=== PATIENT | male | born 1955 | race Hispanic/Latino ===

== ENCOUNTER 2020-06-17 10:58 | Emergency (ER) | payer BC, MEDICARE ==
--- NOTE | 2020-06-17 12:22 | Emergency Department Report ---
ED Chest Pain HPI - General Chief Complaint: Chest Pain Stated Complaint: CHEST PAIN Time Seen by Provider: 06/17/20 12:11 Source: patient Mode of arrival: Ambulatory Limitations: No Limitations - History of Present Illness Initial Comments: This is a 65-year-old male presents to the emergency department via EMS with complaint of some midsternal chest tightness, shortness of breath, nausea without vomiting. The patient says that he was eating oatmeal this morning and the symptoms started about 30 minutes later. The patient does have a known history of allergies to both codeine and MSG. He does not know if there was any MSG within the oatmeal but says that this feels similar to when he had an allergic reaction to MSG. He drove himself to a fire station because "I felt that there was something wrong", and he was brought into the emergency department for further evaluation. The patient has a history of being born with Klinefelter's. He also has a history of some type of tachyarrhythmia as he has been evaluated by 2 different cardiologists and they have recommended a defibrillator to be placed, which is scheduled in the next month or 2. His retail pos specialist is Dr. Meier at [facility]. The patient did not take anything, nor receive anything, for his symptoms prior to presentation. He now still has some mild chest tightness but denies any shortness of breath. He denies any fever, lower extremity swelling, back pain. He does take one half tab of metoprolol per day for his tachycardia. Otherwise he denies any history of hypertension. He denies any history of coronary artery disease, CVA, PE/DVT. He denies any tobacco or illicit drug use. - Related Data Allergies Allergy/AdvReac Type Severity Reaction Status Date / Time codeine AdvReac Unknown Verified 06/17/20 14:11 monosodium glutamate AdvReac Shortness Verified 06/17/20 14:11 of Breath Heart Score - HEART Score History: Slightly suspicious EKG: Non-specific Age: 45-65 Risk factors: 1-2 risk factors Troponin: < normal limit HEART Score: 3 - Critical Actions Critical Actions: 0-3 pts:0.9-1.7%risk of adverse cardiac event.Candidate for discharge ED Review of Systems ROS: Stated complaint: CHEST PAIN Other details as noted in HPI Comment: All other systems reviewed and negative Constitutional: denies: chills, fever Eyes: denies: eye pain, vision change ENT: denies: ear pain, throat pain Respiratory: shortness of breath. denies: cough Cardiovascular: chest pain. denies: edema Gastrointestinal: nausea. denies: abdominal pain, vomiting Genitourinary: denies: dysuria, discharge Musculoskeletal: denies: back pain, arthralgia Skin: denies: rash, lesions Neurological: denies: headache, weakness ED Past Medical Hx - Past Medical History Previous Medical History?: Yes Hx Hypertension: Yes (no meds) Additional medical history: Bladder tumor, Klinefelter syndrome, hx hyperlipidemia no meds - Surgical History Past Surgical History?: Yes Additional Surgical History: Back surgery (83), neck surgery (89), rotator cuff surgery, bilateral mastectomy. - Social History Smoking Status: Never Smoker Substance Use Type: None ED Physical Exam - General Limitations: No Limitations - Other Other exam information: GENERAL: The patient is well-developed well-nourished. HENT: Normocephalic. Atraumatic. Patient has moist mucous membranes. EYES: Extraocular motions are intact. NECK: Supple. Trachea is midline. CHEST/LUNGS: Clear to auscultation. There is no respiratory distress noted. HEART/CARDIOVASCULAR: Regular. There is severe tachycardia. There is no murmur. ABDOMEN: Abdomen is soft, nontender. Patient has normal bowel sounds. SKIN: Skin is warm and dry. NEURO: The patient is awake, alert, and oriented. The patient is cooperative. The patient has no focal neurologic deficits. Normal speech. MUSCULOSKELETAL: There is no tenderness or deformity. There is no limitation range of motion. ED Course Vital Signs 06/17/20 06/17/20 06/17/20 12:03 12:50 13:22 Temperature 98.0 F Pulse Rate 159 H 159 H 146 H Respiratory 16 Rate Blood Pressure 136/79 O2 Sat by Pulse 97 Oximetry 06/17/20 06/17/20 06/17/20 13:23 13:36 14:19 Temperature Pulse Rate 144 H 151 H Respiratory 32 H 30 H Rate Blood Pressure 113/65 121/82 132/78 O2 Sat by Pulse 97 96 97 Oximetry 06/17/20 06/17/20 06/17/20 14:30 15:00 15:30 Temperature Pulse Rate 152 H 116 H Respiratory 21 Rate Blood Pressure 132/78 132/78 116/65 O2 Sat by Pulse 97 96 95 Oximetry 06/17/20 06/17/20 06/17/20 16:00 16:30 17:00 Temperature Pulse Rate 156 H 157 H 160 H Respiratory 21 22 18 Rate Blood Pressure 101/56 116/65 101/64 O2 Sat by Pulse 95 96 96 Oximetry 06/17/20 17:49 Temperature 98.0 F Pulse Rate 160 H Respiratory 18 Rate Blood Pressure O2 Sat by Pulse 96 Oximetry - Reevaluation(s) Reevaluation #1: 06/17/20 16:39 I have spoken to the patient, as well as his niece, multiple times regarding the patient's ED course, condition, treatment plan, and most recently regarding the patient's need of admission to the hospital. The patient, and his niece, previously stated that they want the patient transferred to [facility]. We have made multiple attempts to try and get in touch with the patient's cardiology group without success. The patient asked for me to discuss the patient's results and reason for admission with his sister. She was brought back to his bedside. I explained that the patient will need admission for his atrial flutter with RVR and the need for a Cardizem drip and possibly anticoagulation, as well as cardiology consultation. The patient's sister, as well as the patient, are adamant that he needs to go to [facility]. I explained that the patient is not stable for discharge at this time with his moderate to severe tachycardia, complaints of chest pain and dyspnea. On top of that, even if they go to [facility], they will have to go through the emergency department. It is possible the patient might be seen expediently, but it is also possible that they have an extended wait. With his symptoms, as well as this sustained tachycardia, I explained that the patient could have worsening chest pain, worsening shortness of breath, could develop an NH, stroke, have a syncopal episode and hit his head, or could even . The patient is awake, oriented, AAO x3, and has a normal decision-making capacity. The patient conferred with his sister, as well as his niece, and despite understanding the risks has still decided to leave AGAINST MEDICAL ADVICE. The patient does understand that he can return to this emergency department at any time, for any reason, and we will be happy to evaluate him. Reevaluation #3: 06/17/20 18:37 Lab Results 06/17/20 06/17/20 06/17/20 Range/Units 12:37 12:37 12:37 WBC 7.4 (4.5-11.0) K/mm3 RBC 5.78 H (3.65-5.03) M/mm3 Hgb 18.1 H (11.8-15.2) gm/dl Hct 53.2 H (35.5-45.6) % MCV 92 (84-94) fl MCH 31 (28-32) pg MCHC 34 (32-34) % RDW 15.8 H (13.2-15.2) % Plt Count 119 L (140-440) K/mm3 Lymph % (Auto) 17.4 (13.4-35.0) % [place] % (Auto) 5.8 (0.0-7.3) % Eos % (Auto) 0.9 (0.0-4.3) % Baso % (Auto) 0.6 (0.0-1.8) % Lymph # (Auto) 1.3 (1.2-5.4) K/mm3 [place] # (Auto) 0.4 (0.0-0.8) K/mm3 Eos # (Auto) 0.1 (0.0-0.4) K/mm3 Baso # (Auto) 0.0 (0.0-0.1) K/mm3 Seg Neutrophils % 75.3 H (40.0-70.0) % Seg Neutrophils # 5.6 (1.8-7.7) K/mm3 PT 15.8 H (12.2-14.9) Sec. INR 1.28 H (0.87-1.13) D-Dimer (0-234) ng/mlDDU Sodium 136 L (137-145) mmol/L Potassium 4.1 (3.6-5.0) mmol/L Chloride 103.6 (98-107) mmol/L Carbon Dioxide 25 (22-30) mmol/L Anion Gap 12 mmol/L BUN 14 (9-20) mg/dL Creatinine 0.9 (0.8-1.3) mg/dL Estimated GFR > 60 ml/min BUN/Creatinine Ratio 16 % Glucose 121 H (75-100) mg/dL Calcium 9.6 (8.4-10.2) mg/dL Total Bilirubin 0.60 (0.1-1.2) mg/dL AST 28 (5-40) units/L ALT 37 (7-56) units/L Alkaline Phosphatase 84 (35-129) units/L Troponin T < 0.010 (0.00-0.029) ng/mL Total Protein 6.9 (6.3-8.2) g/dL Albumin 3.8 L (3.9-5) g/dL Albumin/Globulin Ratio 1.2 % TSH (0.270-4.200) mlU/mL 06/17/20 06/17/20 06/17/20 Range/Units 12:37 12:37 15:39 WBC (4.5-11.0) K/mm3 RBC (3.65-5.03) M/mm3 Hgb (11.8-15.2) gm/dl Hct (35.5-45.6) % MCV (84-94) fl MCH (28-32) pg MCHC (32-34) % RDW (13.2-15.2) % Plt Count (140-440) K/mm3 Lymph % (Auto) (13.4-35.0) % [place] % (Auto) (0.0-7.3) % Eos % (Auto) (0.0-4.3) % Baso % (Auto) (0.0-1.8) % Lymph # (Auto) (1.2-5.4) K/mm3 [place] # (Auto) (0.0-0.8) K/mm3 Eos # (Auto) (0.0-0.4) K/mm3 Baso # (Auto) (0.0-0.1) K/mm3 Seg Neutrophils % (40.0-70.0) % Seg Neutrophils # (1.8-7.7) K/mm3 PT (12.2-14.9) Sec. INR (0.87-1.13) D-Dimer 637.39 H (0-234) ng/mlDDU Sodium (137-145) mmol/L Potassium (3.6-5.0) mmol/L Chloride (98-107) mmol/L Carbon Dioxide (22-30) mmol/L Anion Gap mmol/L BUN (9-20) mg/dL Creatinine (0.8-1.3) mg/dL Estimated GFR ml/min BUN/Creatinine Ratio % Glucose (75-100) mg/dL Calcium (8.4-10.2) mg/dL Total Bilirubin (0.1-1.2) mg/dL AST (5-40) units/L ALT (7-56) units/L Alkaline Phosphatase (35-129) units/L Troponin T < 0.010 (0.00-0.029) ng/mL Total Protein (6.3-8.2) g/dL Albumin (3.9-5) g/dL Albumin/Globulin Ratio % TSH 1.210 (0.270-4.200) mlU/mL LANDEN score - Landen Score Age > 65: (0) No Aspirin use within the Past 7 Days: (0) No 3 or more CAD Risk Factors: (0) No 2 or more Angina events in past 24 hrs: (1) Yes Known CAD with more than 50% Stenosis: (0) No Elevated Cardiac Markers: (0) No ST Deviation Greater than 0.5mm: (1) Yes LANDEN Score: 2 ED Medical Decision Making - Lab Data Result diagrams: 06/17/20 12:37 06/17/20 12:37 - EKG Data -: EKG Interpreted by Me - EKG Data Interpretation: other (Wide-complex tachycardia at 160 bpm, left axis deviation, prolonged QTC) 06/17/20 16:23 Repeat EKG at 1515, interpreted by me, shows atrial flutter with a 3-1 AV block, left axis deviation, nonspecific IVCD, LVH - Radiology Data Radiology results: report reviewed, image reviewed interpreted by me: Chest x-ray does not show any acute process. There are no pleural effusions, obvious pneumonia and there is no pneumothorax. No significant cardiomegaly. CTA CHEST WITH IV CONTRAST INDICATION / CLINICAL INFORMATION: MAIN. TECHNIQUE: Axial CT images were obtained through the chest after injection of 100 cc Omnipaque 350 milligrams percent IV contrast. 3 plane MIP and/or 3D reconstructions were produced. All CT scans at this loc ation are performed using CT dose reduction for ALARA by means of automated exposure control. COMPARISON: None available. FINDINGS: PULMONARY ARTERIES: No pulmonary emboli. THORACIC AORTA: No significant abnormality. HEART: No significant abnormality. CORONARY ARTERIES: No significant calcification. PLEURA: No pleural effusion. No pneumothorax. LYMPH NODES: No significant adenopathy. LUNGS: No acute air space or interstitial disease. ADDITIONAL FINDINGS: None. UPPER ABDOMEN: No acute findings. SKELETAL STRUCTURES: No significant osseous abnormality. IMPRESSION: 1. No CT evidence for pulmonary embolism. 2. No acute findings. - Medical Decision Making This patient presents to the emergency department with a complaint of chest pain and shortness of breath after eating his oatmeal this morning. Patient felt that maybe it was a reaction to MSG within his food. However, the patient presents with severe tachycardia with a heart rate of about 160. First EKG showed a wide complex tachyarrhythmia. There were T wave inversions to the lateral leads concerning for some ischemic changes, but no ST elevation myocardial infarction. Patient had another EKG done after receiving a dose of labetalol and the heart rate had come down to about 140. This time it showed an irregular sinus tachycardia. Later on, after the patient received a dose of IV calcium channel mable, heart rate came down to about 110 and it showed atrial flutter with a 3-1 AV block. Patient's labs were mostly unremarkable including CBC, metabolic panel, negative troponins x2, but the patient did have elevated D-dimer level. For this reason he had a CT angiography of the chest completed that did not show any pulmonary embolism, dissection, or any other acute processes. The initial or first dose of labetalol brought the heart rate down transiently and ultimately improved the heart rate from 160 bpm down to about 150 bpm. The second dose of labetalol did not appear to affect his heart rate. When the patient was later given a dose of Cardizem, the heart rate went down to about 100 and we were able to see the EKG findings of the atrial flutter with 3-1 AV block. However, the heart rate went back up into the 150s. It was at this time that it was my plan to place the patient on a Cardizem drip. As per the reevaluation section, I had been speaking with the patient throughout some of his ED course regarding the need for admission to the hospital. The patient and his niece had mentioned there desire to be transferred to [facility]. I attempted to get in touch with the [facility] [place] and also try to directly get in touch with Dr. Meier, without any success. When I explained that I was not having success with getting in touch with the cardiology group or making any headway on transfer to [facility], the patient and his sister decided they wanted to leave AGAINST MEDICAL ADVICE. I had a long conversation with both the patient and his sister regarding the risks of leaving AMA at this time. They have been conferenced with the rest of their family via cell phone, and still came to the decision that they were going to leave AMA. Since the patient is awake, oriented and has a normal decision- making capacity, he was allowed to sign out AMA. They understand that they should stop driving immediately, call 911, with any worsening of his symptoms or signs of any acute distress. They also understand that they can return to this emergency department at any time for reevaluation, despite leaving AMA at this time. Critical Care Time: Yes Critical care time in (mins) excluding proc time.: 35 Critical care attestation.: If time is entered above; I have spent that time in minutes in the direct care of this critically ill patient, excluding procedure time. Critical care time was spent on this patient in doing his initial evaluation, multiple reevaluations, ordering and interpretation of labs and imaging, multiple IV antihypertensive and chronotropic medications for rate control of the atrial flutter, multiple discussions with the patient and his family. Critical Care Time: 35 minutes ED Disposition Clinical Impression: Atrial flutter with rapid ventricular response Chest pain Qualifiers: Chest pain type: unspecified Qualified Code(s): R07.9 - Chest pain, unspecified Dyspnea Qualifiers: Dyspnea type: shortness of breath Qualified Code(s): R06.02 - Shortness of breath Disposition: DC-07 LEFT AGAINST MED ADVICE Is pt being admited?: No Instructions: Chest Pain (ED) Additional Instructions: Please return to the emergency department immediately if you change your mind about further evaluation, treatment, and admission. Forms: AMA Form Time of Disposition: 16:36
--- NOTE | 2020-06-17 12:45 | XRay Report ---
CHEST 1 VIEW 06/17/2020 11:38 AM INDICATION / CLINICAL INFORMATION: Chest pain. COMPARISON: None available. FINDINGS: SUPPORT DEVICES: None. HEART / MEDIASTINUM: No significant abnormality. LUNGS / PLEURA: No significant pulmonary or pleural abnormality. No pneumothorax. ADDITIONAL FINDINGS: No significant additional findings. IMPRESSION: 1. No acute abnormality of the chest. Signer Name: Delta Dominguez MD Signed: 06/17/2020 12:40 PM Workstation Name: [id number]
[2020-06-17] MEDS: SODIUM CHLORIDE 0.9% 1000 ML 1,000 ML IV ONE ×2 (12:50→15:07)
[2020-06-17 13:01] LABS: Basophils % (Auto) 0.6 % (0.0-1.8); Eosinophils # (Auto) 0.1 K/mm3 (0.0-0.4); Eosinophils % (Auto) 0.9 % (0.0-4.3); Hematocrit 53.2 % (35.5-45.6); Hemoglobin 18.1 gm/dl (11.8-15.2); Lymphocytes # (Auto) 1.3 K/mm3 (1.2-5.4); Lymphocytes % (Auto) 17.4 % (13.4-35.0); Mean Corpuscular HGB Conc 34 % (32-34); Mean Corpuscular Volume 92 fl (84-94); Monocytes # (Auto) 0.4 K/mm3 (0.0-0.8); Monocytes % (Auto) 5.8 % (0.0-7.3); Platelet Count 119 K/mm3 (140-440); Red Blood Count 5.78 M/mm3 (3.65-5.03); Red Cell Distribution Width 15.8 % (13.2-15.2)
[2020-06-17 13:12] LABS: INR 1.28 (0.87-1.13)
[2020-06-17 13:17] LABS: Alanine Aminotransferase 37 units/L (7-56); Albumin 3.8 g/dL (3.9-5); BUN/Creatinine Ratio 16; Blood Urea Nitrogen 14 mg/dL (9-20); Calcium 9.6 mg/dL (8.4-10.2); Hemolysis Index 6
[2020-06-17] MEDS ORDERED: dilTIAZem 25 MG/5 ML INJ IV ONE (13:37)
[2020-06-17] MEDS ORDERED: MORPHINE 4 MG/1 ML INJ IV ONE (13:37)
[2020-06-17] MEDS ORDERED: diphenhydrAMINE 50 MG/ML VIAL IV ONE (13:37)
[2020-06-17] MEDS ORDERED: MORPHINE 2 MG/1 ML INJ ONE (13:54)
[2020-06-17] MEDS ORDERED: SODIUM CHLORIDE 0.9% 1000 ML 1,000 ML IV ONE (15:05)
--- NOTE | 2020-06-17 15:08 | Cat Scan Report ---
CTA CHEST WITH IV CONTRAST INDICATION / CLINICAL INFORMATION: MAIN. TECHNIQUE: Axial CT images were obtained through the chest after injection of 100 cc Omnipaque 350 milligrams pe rcent IV contrast. 3 plane MIP and/or 3D reconstructions were produced. All CT scans at this location are performed using CT dose reduction for ALARA by means of automated exposure control. COMPARISON: None available. FINDINGS: PULMONARY ARTERIES: No pulmonary emboli. THORACIC AORTA: No significant abnormality. HEART: No significant abnormality. CORONARY ARTERIES: No significant calcification. PLEURA: No pleural effusion. No pneumothorax. LYMPH NODES: No significant adenopathy. LUNGS: No acute air space or interstitial disease. ADDITIONAL FINDINGS: None. UPPER ABDOMEN: No acute findings. SKELETAL STRUCTURES: No significant osseous abnormality. IMPRESSION: 1. No CT evidence for pulmonary embolism. 2. No acute findings. Signer Name: Kehinde Alves MD Signed: 06/17/2020 3:03 PM Workstation Name: [id number]
[2020-06-17] MEDS ORDERED: dilTIAZem/D5W 100 MG/100 ML BAG IV SCH (17:00)
[2020-06-17 17:49] VITALS: BP 101/64
== END 2020-06-17 17:50 | disposition left against medical advice (07) ==
LOC: ED 10:58
DX: I48.92 Unspecified atrial flutter (principal); R07.89 Other chest pain; R06.00 Dyspnea, unspecified; I10 Essential (primary) hypertension; Z98.890 Other specified postprocedural states; Z88.8 Allergy status to other drugs, medicaments and biological substances
CPT/HCPCS: 36415; 71045; 71275; 80053; 84443; 84484; 85025; 85379; 85610; 93005; 96361; 96374; 96375; 96376; 99291; J1200; J2270; J7030; Q9967